=== PATIENT | male | born 1975 | race American Indian/Alaskan Native ===

== ENCOUNTER 2018-03-17 22:31 | Emergency (ER) | payer BC, MEDICAID ==
--- NOTE | 2018-03-17 23:28 | EDM.PDOC ---
ED HPI GENERAL MEDICAL PROBLEM - General Chief Complaint: Abdominal Pain Stated Complaint: FLU LIKE Time Seen by Provider: 03/17/18 23:11 Source of Information: Reports: Patient, Old Records, RN Notes Reviewed History Limitations: Reports: No Limitations - History of Present Illness INITIAL COMMENTS - FREE TEXT/NARRATIVE: Was brought by his father Chief complaint Abdominal pain and vomiting History of present illness 43-year-old male who works in [employer] for [employer] Onset of recurrent intermittent abdominal pain and vomiting 2 months ago, much worse in the last 2 days. Associated with considerable retching. He also has had ongoing chronic diarrhea for several years even prior to his cholecystectomy, made worse by eating. He is attempting to lose weight has cut out soda alcohol and has lost a few pounds. For a while the change in diet helped improve his diarrhea. Sweating and felt like a fever today with his pain. No urinary symptoms Pain reminds him of his gallbladder pain prior to his cholecystectomy Abdomen Pain Score (Numeric/FACES): 8 - Related Data Allergies Allergy/AdvReac Type Severity Reaction Status Date / Time No Known Allergies Allergy Verified 03/17/18 23:05 Home Meds: Home Meds Ondansetron [Ondansetron Odt] 4 mg PO TID PRN #6 tab.rapdis 03/18/18 [Rx] Past Medical History HEENT History: Reports: Otitis Media Other HEENT History: Left ear on 07-27-2015 Gastrointestinal History: Reports: Chronic Diarrhea, GERD Other Gastrointestinal History: colon polyps Genitourinary History: Reports: Other (See Below) Other Genitourinary History: frequent urination since with 3 to 4 wakings at night to void. Musculoskeletal History: Reports: Other (See Below) Other Musculoskeletal History: Fracture toe Psychiatric History: Reports: Anxiety, Depression, Panic Attack Endocrine/Metabolic History: Reports: Other (See Below) Other Endocrine/Metabolic History: Heat intolerance since Dermatologic History: Reports: Other (See Below) Other Dermatologic History: heat rash - Infectious Disease History Infectious Disease History: Reports: Chicken Pox - Past Surgical History GI Surgical History: Reports: Cholecystectomy Musculoskeletal Surgical History: Reports: Other (See Below) Other Musculoskeletal Surgeries/Procedures:: toe surgery Social & Family History - Family History Cardiac: Reports: Hypertension, CT Oncologic: Reports: Breast - Tobacco Use Smoking Status *Q: Never Smoker Second Hand Smoke Exposure: No - Caffeine Use Caffeine Use: Reports: Soda - Recreational Drug Use Recreational Drug Use: No ED ROS GENERAL - Review of Systems Review Of Systems: See Below Constitutional: Reports: Fever, Malaise, Diaphoresis, Decreased Appetite HEENT: Reports: No Symptoms Respiratory: Reports: No Symptoms Cardiovascular: Reports: No Symptoms GI/Abdominal: Reports: Abdominal Pain, Diarrhea, Nausea, Vomiting : Reports: No Symptoms Musculoskeletal: Reports: No Symptoms Skin: Reports: No Symptoms Neurological: Reports: No Symptoms Hematologic/Lymphatic: Reports: No Symptoms ED EXAM, GI/ABD - Physical Exam Exam: See Below Exam Limited By: No Limitations General Appearance: Alert, Anxious, Moderate Distress, Obese, Other (Elevated blood pressure, other vital signs normal) Eyes: Bilateral: Normal Appearance Ears: Normal External Exam, Hearing Grossly Normal Nose: Normal Inspection, Normal Mucosa Throat/Mouth: Normal Inspection, Normal Oropharynx Head: Atraumatic, Normocephalic Neck: Normal Inspection, Non-Tender Respiratory/Chest: No Respiratory Distress, No Accessory Muscle Use Cardiovascular: Normal Peripheral Pulses, Regular Rate, Rhythm GI/Abdominal Exam: Soft, Tender (Right upper and left upper quadrants). No: Abnormal Bowel Sounds (Male) Exam: No Hernia, Normal Inspection Back Exam: Normal Inspection. No: CVA Tenderness (R), CVA Tenderness (L) Extremities: Normal Inspection, Non-Tender, Normal Capillary Refill Neurological: Alert, Oriented, No Motor/Sensory Deficits Psychiatric: Anxious Skin Exam: Warm, Dry, Intact, Normal Color Lymphatic: No Adenopathy Course - Vital Signs Last Recorded V/S: Last Vital Signs Temp 36.8 C 03/17/18 23:47 Pulse 72 03/17/18 23:47 Resp 12 03/17/18 23:47 BP 156/85 H 03/17/18 23:47 Pulse Ox 96 03/17/18 23:47 - Orders/Labs/Meds Orders: Active Orders 24 hr Category Date Time Status Peripheral IV Care [RC] . DIRECTED Care 03/17/18 23:21 Active Abdomen Pelvis w Cont [CT] Stat Exams 03/18/18 00:06 Taken Sodium Chloride 0.9% [Normal Saline] 1,000 ml Med 03/17/18 23:30 Active IV ASDIRECTED Sodium Chloride 0.9% [Saline Flush] Med 03/17/18 23:21 Active 10 ml FLUSH ASDIRECTED PRN Peripheral IV Insertion Adult [OM.PC] Routine Oth 03/17/18 23:21 Ordered Medication Orders Sodium Chloride (Normal Saline) 1,000 mls @ 250 mls/hr IV ASDIRECTED PAUL Last Admin: 03/17/18 23:39 Dose: 250 mls/hr Sodium Chloride (Saline Flush) 10 ml FLUSH ASDIRECTED PRN PRN Reason: Keep Vein Open Last Admin: 03/17/18 23:41 Dose: 10 ml Labs: Laboratory Tests 03/17/18 03/17/18 Range/Units 23:35 23:35 WBC 13.4 H (4.5-11.0) K/uL RBC 4.89 (4.30-5.90) M/uL Hgb 15.1 H (12.0-15.0) g/dL Hct 44.7 (40.0-54.0) % MCV 91 (80-98) fL MCH 31 (27-31) pg MCHC 34 (32-36) % Plt Count 428 H (150-400) K/uL Sodium 139 L (140-148) mmol/L Potassium 3.8 (3.6-5.2) mmol/L Chloride 105 (100-108) mmol/L Carbon Dioxide 26 (21-32) mmol/L Anion Gap 11.8 (5.0-14.0) mmol/L BUN 13 (7-18) mg/dL Creatinine 0.8 (0.8-1.3) mg/dL Est Cr Clr Drug Dosing 127.99 mL/min Estimated GFR (MDRD) > 60 (>60) Glucose 129 H (74-106) mg/dL Calcium 8.5 (8.5-10.1) mg/dL Total Bilirubin 0.3 (0.2-1.0) mg/dL AST 25 (15-37) U/L ALT 44 (12-78) U/L Alkaline Phosphatase 111 (46-116) U/L Total Protein 8.1 (6.4-8.2) g/dL Albumin 3.7 (3.4-5.0) g/dL Globulin 4.4 H (2.3-3.5) g/dL Albumin/Globulin Ratio 0.8 L (1.2-2.2) Lipase 105 (73-393) U/L Meds: Medications Generic Name Dose Route Start Last Admin Trade Name Esme PRN Reason Stop Dose Admin Sodium Chloride 1,000 mls @ 250 mls/hr 03/17/18 23:30 03/17/18 23:39 Normal Saline IV 250 mls/hr ASDIRECTED PAUL Administration Sodium Chloride 10 ml 03/17/18 23:21 03/17/18 23:41 Saline Flush FLUSH 10 ml ASDIRECTED PRN Administration Keep Vein Open Discontinued Medications Generic Name Dose Route Start Last Admin Trade Name Esme PRN Reason Stop Dose Admin Sodium Chloride 85 mls @ 4 mls/sec 03/18/18 00:19 03/18/18 00:31 Normal Saline IV 03/18/18 00:20 4 mls/sec ASDIRECTED STA Administration Iopamidol 150 ml 03/18/18 00:19 03/18/18 00:31 Isovue-300 (61%) IV 03/18/18 00:20 150 ml . DIRECTED STA Administration Ketorolac Tromethamine 15 mg 03/17/18 23:21 03/17/18 23:44 Toradol IVPUSH 03/17/18 23:22 15 mg ONETIME ONE Administration Metoclopramide HCl 10 mg 03/17/18 23:21 03/17/18 23:42 Reglan IV 03/17/18 23:22 10 mg ONETIME ONE Administration Ondansetron HCl 8 mg 03/18/18 00:06 03/18/18 00:11 Zofran IVPUSH 03/18/18 00:07 8 mg ONETIME ONE Administration - Re-Assessments/Exams Free Text/Narrative Re-Assessment/Exam: 03/17/18 23:27 43-year-old male with chronic diarrhea New-onset of abdominal pain nausea vomiting. Differential diagnosis includes pancreatitis, choledocholithiasis, colitis among others. Intravenous saline, ketorolac 15 mg, Reglan 10 mg 03/18/18 00:07 He feels a little better at this time but nausea is still present. Lab tests show mild elevation white count 13.4 hemoglobin 15.1 platelets of 428. Electrolytes BUNs creatinine anion gap hepatic enzymes and lipase are normal except sodium 139 Glucose 129 Ondansetron [address] IV for nausea CT abdomen pelvis with IV contrast because of duration of the symptoms 03/18/18 01:20 CT abdomen negative for any acute abnormalities, does have diverticulosis without diverticulitis Symptoms of the lateral last 2 days most likely represent an acute gastroenteritis Departure - Departure Time of Disposition: 01:14 Disposition: Home, Self-Care 01 Condition: Good Clinical Impression: Gastroenteritis - Discharge Information Prescriptions: Ondansetron [Ondansetron Odt] 4 mg PO TID PRN #6 tab.rapdis PRN Reason: Nausea or vomiting Instructions: Viral Gastroenteritis, Adult Referrals: PCP,None [Primary Care Provider] - Forms: ED Department Discharge, ED Return to Work/School Form Additional Instructions: See your own physician/clinic 1 week if not improved Return to emergenc high fever, repeated vomiting, severe pain he cannot manage at home.y if - My Orders Last 24 Hours: My Active Orders 03/17/18 23:21 Peripheral IV Care [RC] . DIRECTED Sodium Chloride 0.9% [Saline Flush] 10 ml FLUSH ASDIRECTED PRN Peripheral IV Insertion Adult [OM.PC] Routine 03/17/18 23:30 Sodium Chloride 0.9% [Normal Saline] 1,000 ml IV ASDIRECTED 03/18/18 00:06 Abdomen Pelvis w Cont [CT] Stat - Assessment/Plan Last 24 Hours: My Active Orders 03/17/18 23:21 Peripheral IV Care [RC] . DIRECTED Sodium Chloride 0.9% [Saline Flush] 10 ml FLUSH ASDIRECTED PRN Peripheral IV Insertion Adult [OM.PC] Routine 03/17/18 23:30 Sodium Chloride 0.9% [Normal Saline] 1,000 ml IV ASDIRECTED 03/18/18 00:06 Abdomen Pelvis w Cont [CT] Stat
[2018-03-17] MEDS: Sodium Chloride 0.9% 1,000 ML IV SCH (23:39)
[2018-03-17] MEDS: Sodium Chloride 0.9% 10 ML Syringe FLUSH PRN (23:41)
[2018-03-17] MEDS: Metoclopramide 10 MG/2 ML SDV IV ONE (23:42)
[2018-03-17] MEDS: Ketorolac 30 MG/ML SDV IVPUSH ONE (23:44)
[2018-03-17 23:48] VITALS: BP 156/85
[2018-03-18] MEDS: Ondansetron 4 MG/2 ML SDV IVPUSH ONE (00:11)
[2018-03-18] MEDS: Iopamidol 612 MG/ML 150 ML Bottle IV STA (00:31)
== END 2018-03-18 01:37 | disposition home or self-care (01) ==
LOC: JP.ED 22:31
DX: K52.9 Noninfective gastroenteritis and colitis, unspecified (principal)
CPT/HCPCS: 36415; 74177; 80053; 83690; 85027; 96361; 96374; 96375; 99284; J1885; J2405; J2765; J7030; J7050

== ENCOUNTER 2024-10-21 20:14 | Emergency (ER) | payer BC, MEDICAID ==
[2024-10-21] MEDS ORDERED: Sodium Chloride 0.9% 10 ML Syringe FLUSH PRN (20:56)
[2024-10-21 21:00] LABS: BASOPHILS ABSOLUTE AUTO 0.05 K/uL (0.00-0.10); BASOPHILS PERCENT AUTO 0.4 % (0.1-1.3); EOSINOPHILS ABSOLUTE AUTO 0.25 K/uL (0.00-0.40); EOSINOPHILS PERCENT AUTO 2.1 % (0.0-5.4); HEMATOCRIT 45.8 % (38.4-49.7); HEMOGLOBIN 15.3 g/dL (12.9-16.9); IMMATURE GRAN ABSOLUTE AUTO 0.08 K/uL (0.00-0.23); IMMATURE GRAN PERCENT AUTO 0.7 % (0.0-0.7); LYMPHOCYTES ABSOLUTE AUTO 1.41 K/uL (0.8-3.3); LYMPHOCYTES PERCENT AUTO 11.6 % (11.4-47.7); MEAN CORPUSCULAR HEMOGLOBIN 30.9 pg (31.6-35.5); MEAN CORPUSCULAR HGB CONC 33.4 g/dL (31.6-35.5); MEAN CORPUSCULAR VOLUME 92.5 fL (81.4-99.0); MONOCYTES ABSOLUTE AUTO 0.59 K/uL (0.20-0.90); MONOCYTES PERCENT AUTO 4.9 % (3.3-12.6); NEUTROPHILS ABSOLUTE AUTO 9.74 K/uL (1.0-7.6); NEUTROPHILS PERCENT AUTO 80.3 % (40.0-78.1); PLATELET COUNT,PLT 340 K/uL (130-375); RED BLOOD CELL COUNT 4.95 M/uL (4.14-5.76); WHITE BLOOD CELL COUNT,WBC 12.1 K/uL (3.2-11.0)
[2024-10-21 21:06] LABS: PROTHROMBIN TIME 9.8 sec (9.2-10.6)
[2024-10-21 21:31] LABS: ANION GAP 11.6 mmol/L (5.0-14.0); CALCIUM 8.8 mg/dL (8.5-10.1); CREATININE 0.9 mg/dL (0.8-1.3); EST CRCL DRUG DOSING (CG) 106.58 mL/min; POTASSIUM,K 3.6 mmol/L (3.6-5.2); TROPONIN I HIGH SENSITIVITY 29.6 pg/mL (<=60.3)
[2024-10-21] MEDS: Sodium Chloride 0.9% 100 ML IV SCH (22:23)
[2024-10-21] MEDS: Iopamidol 755 Mg/ML 100 ML Bottle IV SCH (22:24)
[2024-10-22 00:25] VITALS: BP 180/113; PULSE 77
[2024-10-22] MEDS: Prochlorperazine 10 MG/2 ML SDV IVPUSH ONE (01:38)
[2024-10-22] MEDS: Promethazine 25 MG/ML SDV IM ONE (03:41)
[2024-10-22] MEDS: Enoxaparin 100 MG/1 ML Syringe SUBCUT ONE (03:46)
[2024-10-22] MEDS: Enalaprilat 1.25 MG/ML SDV IV ONE (07:22)
== END 2024-10-22 04:02 | disposition home or self-care (01) ==
LOC: JP.ED 20:14
DX: R07.89 Other chest pain (principal); K52.9 Noninfective gastroenteritis and colitis, unspecified; K21.9 Gastro-esophageal reflux disease without esophagitis; R06.9 Unspecified abnormalities of breathing; Z90.49 Acquired absence of other specified parts of digestive tract; Z79.01 Long term (current) use of anticoagulants; Z79.899 Other long term (current) drug therapy
CPT/HCPCS: 36415; 71046; 71275; 80048; 83880; 84484; 85025; 85379; 85610; 87428; 93005; 96372; 96374; 99284; 99285; J0780; J2550; Q9967